=== PATIENT | male | born 1985 | race African-American/Black ===

== ENCOUNTER 2016-12-09 05:40 | Day surgery (SDC) | payer OTHER ==
[~2016-12-09] VITALS: Ht 172.7 cm; Wt 151.5 kg
--- NOTE | ~2016-12-09 | O ---
[facility] [place] [address] OPERATIVE REPORT Name: YESY COSTA Room #: 150-4 [facility]..#: [id number] Admission: 12/09/16 Attend Phys: Herminio Barraza MD Discharge: Date of : 83 Report #: [id number] THIS REPORT FOR: //name// CC: Herminio Braxton DATE OF SERVICE: 12/09/2016 PREOPERATIVE DIAGNOSIS: Right external canal lesion. POSTOPERATIVE DIAGNOSIS: Right external canal lesion. PROCEDURE: Excision of external canal lesion. SURGEON: Herminio Barraza M.D. ANESTHESIA: General LMA along with 2 mL of 1% Xylocaine and 1:100,000 epinephrine. TECHNIQUE: After obtaining consent and identifying the ear with the patient and marking it appropriately, he was brought to the operating suite. Appropriate time-out was performed. General LMA anesthesia was obtained. The area was prepped and draped in the usual sterile fashion. The operating scope was brought into the field. The ear canal was intubated, debris was removed with suction and curette. Ear canal lesion was located with its attachment being at about the 12 o'clock position just medial to the meatal opening. Local anesthetic was infiltrated into the stalk of the mass. The mass was somewhat botryoidal in nature. After local anesthetic was infiltrated and several minutes were allowed to pass for vasoconstriction, I used a [place] blade to make an incision through the cutaneous portion. I then used a combination of iris scissors and a [place] blade to amputate the stalk. The stalk was very small and appeared to be a cartilaginous source with the stalk being approximately 3-4 mm in diameter. There was only a small cutaneous tear noted. The area was cauterized with cautery in a setting of 12 coagulation. Wound was hemostatically dry. At that point, I placed several Otowicks in the area and inflated him with Ciprodex drops. He was then allowed to awaken from anesthesia and went to recovery room in stable condition. ESTIMATED BLOOD LOSS: Scant. By: 0818 [id number] Herminio Barraza MD /nt
--- NOTE | ~2016-12-09 | S ---
[facility] [address] [place] [address] SURGICAL PATH RPT PROCEDURE Name: DEL COSTA Room #: DEP [facility] M..#: [id number] Admission: 12/09/16 Date of : 83 Discharge: 12/09/16 Report #: [id number] Path Case #: [id number] PATHOLOGY REPORT COLLECTION DATE: 12/09/2016 RECEIVED DATE: 12/09/2016 SUBMITTING PHYS: Dr. Herminio Barraza OTHER PHYS: Dr. Sonny Braxton SPECIMEN(S) RECEIVED: A.Right ear lesion * * * * * * * * * * * * FINAL DIAGNOSIS: Right ear canal mass, excision: - Benign keratinized squamous epithelium overlying fragments of reactive bone, favor a cholesteatoma. - Negative for malignancy. (IUV:csd; d/t: 12/12/2016) PATHOLOGIST: Emilia De Leon M.D. REPORT ELECTRONICALLY SIGNED BY: Emilia De Leon M.D. DATE/TIME: 12/12/2016 17:11 * * * * * * * * * * * * GROSS PATHOLOGY: Received in formalin labeled "Del Costa, right ear canal mass," is a 0.7 x 0.5 x 0.4 cm segment of light baez to dominguez-baez calcified soft tissue. The specimen is bisected and submitted entirely in cassette A1, following decalcification. (KAH; 12/10/2016) CLINICAL HISTORY: Right ear lesion INITIAL CPT CODE(S): A; 27915 Professional services performed by [facility] at [facility] [address] [place] [address] Technical services performed by [facility] at [address] [place] [id number]. [facility] [address] [place] [address] SURGICAL PATH RPT PROCEDURE Name: DEL COSTA Room #: DEP [facility] Shayna#: [id number] Admission: 12/09/16 Date of : 83 Discharge: 12/09/16 Report #: [id number] Path Case #: [id number] [address] PHONE: [phone] DIRECTOR: Robert Oquendo M.D. * * * END OF REPORT * * *
--- NOTE | ~2016-12-09 | H ---
[facility] [place] [address] HISTORY AND PHYSICAL Name: YESY COSTA Room #: 150-4 [facility]..#: [id number] Admission: 12/09/16 Attend Phys: Herminio Barraza MD Discharge: Date of : 83 Report #: [id number] THIS REPORT FOR: //name// CC: Herminio Braxton DATE OF SERVICE: 12/08/2016 ANTICIPATED DATE OF SURGERY: 12/10/2016. CHIEF COMPLAINT: Ear lesion. HISTORY OF PRESENT ILLNESS: The patient is a 31-year-old gentleman, originally seen back in January of 2015 for possible ear infection. At that time, he was noted to have a small, somewhat spherical mass on the right meatus. I had recommended removal of that lesion at that time due to its potential obstructive nature. The patient returned to the clinic on November 09 of this year for complaints of difficulty hearing and it was noted on exam, he had substantial amount of cerumen. Again, a large multilobulated and fleshy mass was noted apparently attached to the superior meatal portion of the right canal; and based on previous exam, it was felt to be almost twice the size. There was no ulceration involved. However, this mass was getting large enough to almost block most of the meatal opening. I recommended, because the mass was now becoming enlarged enough to nearly block the canal, to remove it under anesthesia. I think the mass can be excised in total cutaneously, as unlikely a skin graft will be necessary to allow the wound to heal by secondary intention. I do not feel the wound surface area will be large enough to cause any circumferential narrowing of the meatal opening. Risks involved as well as benefits of removal as the option of observation were discussed with him and he agrees to proceed forward at this time. ALLERGIES TO MEDICATION: None. MEDICATIONS ON ADMISSION: Include esomeprazole 20 mg once a day, meloxicam 15 mg daily, Singulair 10 mg once a day and tramadol 37.5 and acetaminophen 325 one every 4 hours as needed for pain. PAST MEDICAL AND SURGICAL HISTORY: Notable for essential hypertension. Surgery is notable for previous arthroscopy of the ankle. FAMILY HISTORY: Notable for strokes. REVIEW OF SYSTEMS: Presently unremarkable for any other GI, , cardiovascular or pulmonary issues. PHYSICAL EXAMINATION: [address] [address] HISTORY AND PHYSICAL Name: YESY COSTA Room #: [address] [place] [address].#: [id number] Admission: 12/09/16 Attend Phys: Herminio Barraza MD Discharge: Date of : 83 Report #: [id number] VITAL SIGNS: Height of 5 feet 8 with weight of 300 pounds. Last scored blood pressure was 155/115, however, cuff size is inappropriate. HEENT: As noted above, for the right external canal with a fleshy cutaneously covered mass of multilobulated nature, located towards the superior meatus, at approximately 10 o'clock to 12 o'clock. The remainder of the ear canal appears unremarkable as does the tympanic membrane. The pinna appears unremarkable. Left ear is normal. Nares normal. Oral cavity, oropharynx unremarkable. CARDIOVASCULAR: Regular rate and rhythm. CHEST: Clear. ASSESSMENT: Right meatal mass. PLAN: Plan will be for excision under anesthesia. <ELECTRONICALLY SIGNED> By: Herminio Barraza MD 12/09/16 0726 1030 1511 Herminio Barraza MD /nt
[~2016-12-09 05:40] MED LIST: CLARITIN10 MG PO; IBUPROFEN 800800 M1 PO; NEXIUM20 MG PO; NEXIUM40 MG PO; SINGULAIR 10 MG10 M1 PO; ULTRACET TABLET1 TAB PO
[2016-12-09 06:57] VITALS: BP 149/98
[2016-12-09 08:26] VITALS: BP 149/98
== END 2016-12-09 09:30 | disposition home or self-care (01) ==
LOC: OR 05:40 → TBA 05:40 → OR 09:30
DX: H60.41 Cholesteatoma of right external ear (principal); I10 Essential (primary) hypertension; J45.909 Unspecified asthma, uncomplicated; K21.9 Gastro-esophageal reflux disease without esophagitis; Z98.890 Other specified postprocedural states
CPT/HCPCS: 50010; 50101; 50386; 50398; 57006; 62110; 62900; 64037; 70005